=== PATIENT | male | born 1985 | race Caucasian/White ===

== ENCOUNTER 2019-10-07 08:50 | Emergency (ER) | payer BC, MEDICAID ==
[2019-10-07 09:26] VITALS: BP 112/82
--- NOTE | 2019-10-07 10:03 | UC ---
FLU HPI - HPI Summary HPI Summary: Patient states he's had nausea, left sided abdominal pain, body aches and some mild nasal congestion since last evening. He denies any vomiting. He has diarrhea one time. He denies any urinary symptoms. He states the left-sided abdominal pain is worse today than it was last evening. Patient's history includes a broken back and pelvis as a result of a fall 10 years ago from 68 feet off a building. - History of Current Complaint Chief Complaint: UCGeneralIllness Stated Complaint: FLULIKE SYMPTOMS Time Seen by Provider: 10/07/19 10:01 Hx Obtained From: Patient Onset/Duration: Gradual Onset, Lasting Hours Severity Currently: Moderate Severity Initially: Mild Pain Intensity: 5 Associated Signs & Symptoms: Positive: Myalgia, Nasal Congestion, Diarrhea - Diarrhea one time today - Allergy/Home Medications Allergies/Adverse Reactions: Allergies Allergy/AdvReac Type Severity Reaction Status Date / Time No Known Allergies Allergy Verified 10/07/19 09:26 Home Medications: Home Medications Fluoxetine HCl [Prozac] 50 mg PO DAILY 10/07/19 [History Confirmed 10/07/19] PMH/Surg Hx/FS Hx/Imm Hx Previously Healthy: Yes GI/ History: Gastroesophageal Reflux - Surgical History Surgical History: Yes Surgery Procedure, Year, and Place: GB 2012. spleen surgery 2009 - Family History Known Family History: Positive: Non-Contributory - Social History Occupation: Employed Full-time Lives: With Family Alcohol Use: Occasionally Substance Use Type: None Smoking Status (MU): Former Smoker Type: Cigarettes Review of Systems All Other Systems Reviewed And Are Negative: Yes ENT: Positive: Nasal Discharge Gastrointestinal: Positive: Abdominal Pain - Left-sided abdominal pain which has worsened since last evening, Diarrhea - Diarrhea one time today, Nausea - Nausea since last evening Genitourinary: Positive: Negative Is Patient Immunocompromised?: No Physical Exam Triage Information Reviewed: Yes Appearance: Well-Appearing, No Pain Distress, Well-Nourished Vital Signs: Initial Vital Signs Temp 98.2 F 10/07/19 09:19 Pulse 60 10/07/19 09:19 Resp 12 10/07/19 09:19 BP 112/82 10/07/19 09:19 Pulse Ox 98 10/07/19 09:19 Vital Signs Reviewed: Yes Eyes: Positive: Conjunctiva Clear ENT: Positive: Hearing grossly normal, Pharynx normal, TMs normal, Uvula midline Neck: Positive: Supple, Nontender, No Lymphadenopathy Respiratory: Positive: Lungs clear, Normal breath sounds, No respiratory distress, No accessory muscle use Cardiovascular: Positive: RRR, No Murmur, Pulses Normal, Brisk Capillary Refill Abdomen Description: Positive: No Organomegaly, Soft. Negative: CVA Tenderness (R), CVA Tenderness (L), Distended, Guarding, Hepatomegaly - Tenderness in the left mid abdomen, no rigidity, rebound or guarding. No radiation of pain. Bowel Sounds: Positive: Present Musculoskeletal Exam: Normal Neurological Exam: Normal Psychological Exam: Normal Skin Exam: Normal Flu Course/Dx - Course Course Of Treatment: The patient does not appear ill. I don't believe he has the flu. I am concerned because he has a left mid abdominal pain since last evening which he states is worsening today. Therefore I am referring him to the emergency room for further evaluation and treatment of the abdominal pain. He is agreeable to this plan of action. I advised him know eating or drinking until evaluated there - Differential Dx/Diagnosis Provider Diagnosis: Abdominal pain Discharge ED - Sign-Out/Discharge Documenting (check all that apply): Patient Departure All imaging exams completed and their final reports reviewed: No Studies - Discharge Plan Condition: Good Disposition: HOME-RECOMMEND TO ED Referrals: Asha Amaro MD [Primary Care Provider] - Additional Instructions: After the evaluation by the nurse practitioner, it is recommended that you go to the emergency room for further evaluation of the abdominal pain where you should receive additional testing that can be completed in the emergency department. It is recommended that you go directly to the emergency department. This evaluation may include blood work or imaging. This testing will be directed and decided by the provider that evaluates you within the emergency department. If pain becomes worse, you feel lightheaded or you develop uncontrolled vomiting, or have any other concerns while you are driving to the emergency room, please tub puller and call 911. - Billing Disposition and Condition Condition: GOOD Disposition: Home-Recommend to ED - Attestation Statements Provider Attestation: This patient was not seen by me. I was available for consult. Chart reviewed. CANDACE
== END 2019-10-07 10:18 | disposition home health service (06) ==
LOC: UCCORT 08:50
DX: R10.9 Unspecified abdominal pain (principal); R09.81 Nasal congestion; M79.10 Myalgia, unspecified site; R19.7 Diarrhea, unspecified; Z87.891 Personal history of nicotine dependence
CPT/HCPCS: 99212; G0463